=== PATIENT | male | born 2000 | race Caucasian/White ===

== ENCOUNTER 2023-01-31 13:45 | Emergency (ER) | payer SELFPAY ==
[~2023-01-31] VITALS: Ht 170.2 cm; Wt 72.5 kg
[2023-01-31 14:20] LABS: CHLORIDE 105 mEq/L (98-107)
[2023-01-31 14:21] LABS: BASOPHILS % 0.4 % (0.0-2.0); EOSINOPHILS % 0.6 % (0.0-5.0); HEMATOCRIT. 43.7 % (42.0-52.0); LYMPHOCYTES % 16.1 % (20.0-50.0); MEAN CORPUSCULAR HEMOGLOBIN 30.5 pg (28.0-32.0); MEAN CORPUSCULAR VOLUME 88.8 fL (80.0-94.0); MEAN PLATELET VOLUME 8.9 fl (7.4-10.4); MONOCYTES % 11.1 % (2.0-8.0); NEUTROPHILS % 71.8 % (40.0-76.0); PLATELET 182 x1000/uL (130-400); RED BLOOD CELL COUNT 4.92 mill/uL (4.7-6.1); RED CELL DISTRIBUTION WIDTH 13.1 % (11.6-14.6)
[2023-01-31 17:47] VITALS: BP 114/68
== END 2023-01-31 17:50 | disposition home or self-care (01) ==
LOC: ER 13:45
DX: M79.602 Pain in left arm (principal)
CPT/HCPCS: 36415; 71045; 80053; 84484; 85025; 93005; 99285